=== PATIENT | female | born 1955 | race Caucasian/White ===

== ENCOUNTER 2023-02-22 16:53 | Emergency (ER) | payer MEDICARE, OTHER ==
[2023-02-22] MEDS ORDERED: ACETAMINOPHEN TAB 500 MG TAB PO STA (17:30)
[2023-02-22] MEDS ORDERED: FLUORESCEIN STRIPS 1 MG STRIP LEFT EYE ONE (17:30)
[2023-02-22] MEDS ORDERED: PROPARACAINE 0.5% OPHTH DROPS 15 ML BTL LEFT EYE STA (17:30)
--- NOTE | 2023-02-22 17:38 | ED ---
General Adult HPI - General Chief complaint: Fall Stated complaint: fall Time Seen by Provider: 02/22/23 17:11 Source: patient, RN notes reviewed Mode of arrival: ambulatory Limitations: no limitations - History of Present Illness Initial comments: 67-year-old female presents to the emergency department for evaluation of head injury from fall. She states that around 3:30 PM today she was walking a set of stairs in her garage when she tripped and fell. She hit her head on the garage door that was slightly ajar. She reports a scalp hematoma to her left-sided forehead above the eyebrow. She did not lose consciousness. She is not on any blood thinners. She denies any changes in her vision. She states that she has a lot of pressure to the front of her head where she was injured. She has been applying ice to this but has not taken any medication for pain control at this time. She denies any other injury. She is moving all extremities without limitations. - Related Data Allergies Allergy/AdvReac Type Severity Reaction Status Date / Time Latex, Natural Rubber Allergy Rash/Hives Verified 02/22/23 17:18 Review of Systems ROS Statement: Those systems with pertinent positive or pertinent negative responses have been documented in the HPI. ROS Other: All systems not noted in ROS Statement are negative. Past Medical History Past Medical History: Hypertension, Thyroid Disorder Additional Past Medical History / Comment(s): anxiety History of Any Multi-Drug Resistant Organisms: None Reported Past Psychological History: Anxiety Smoking Status: Never smoker Past Alcohol Use History: None Reported Past Drug Use History: None Reported General Exam Limitations: no limitations General appearance: alert, in no apparent distress Head exam: Present: other (Scalp hematoma above left eyebrow about 5 cm, ecchymosis to left upper eyelid ) Eye exam: Present: normal appearance, PERRL, EOMI. Absent: scleral icterus, conjunctival injection, periorbital swelling ENT exam: Present: normal exam, mucous membranes moist Neck exam: Present: normal inspection. Absent: tenderness, meningismus, lymphadenopathy Respiratory exam: Present: normal lung sounds bilaterally. Absent: respiratory distress, wheezes, rales, rhonchi, stridor Cardiovascular Exam: Present: regular rate, normal rhythm, normal heart sounds. Absent: systolic murmur, diastolic murmur, rubs, gallop, clicks GI/Abdominal exam: Present: soft, normal bowel sounds. Absent: distended, tenderness, guarding, rebound, rigid Extremities exam: Present: normal inspection, full ROM, normal capillary refill. Absent: tenderness, pedal edema, joint swelling, calf tenderness Back exam: Present: normal inspection Neurological exam: Present: alert, oriented X3, CN II-XII intact, normal gait. Absent: motor sensory deficit Psychiatric exam: Present: normal affect, normal mood Skin exam: Present: warm, dry, intact, other (ecchymosis to left upper eyelid, scalp hematoma above the left eyebrow). Absent: normal color Course Vital Signs 02/22/23 02/22/23 02/22/23 17:09 21:14 21:39 Temperature 98.0 F 97.8 F 97.6 F Pulse Rate 81 81 85 Respiratory 20 20 19 Rate Blood Pressure 145/78 134/83 135/81 O2 Sat by Pulse 97 99 96 Oximetry Medical Decision Making - Medical Decision Making Was pt. sent in by a medical professional or institution (, PA, AWS DEVELOPER, urgent care, hospital, or penitentiary...) When possible be specific @ -No Did you speak to anyone other than the patient for history (EMS, parent, family, police, friend...)? What history was obtained from this source @ -No Did you review nursing and triage notes (agree or disagree)? Why? @ -I reviewed and agree with nursing and triage notes Were old charts reviewed (outside hosp., previous admission, EMS record, old EKG, old radiological studies, urgent care reports/EKG's, penitentiary records)? Report findings @ -No old charts were reviewed Differential Diagnosis (chest pain, altered mental status, abdominal pain women, abdominal pain men, vaginal bleeding, weakness, fever, dyspnea, syncope, headache, dizziness, GI bleed, back pain, seizure, CVA, palpatations, mental health, musculoskeletal)? @ -Fall, head injury, scalp hematoma, intracranial hemorrhage, this list is not all-inclusive EKG interpreted by me (3pts min.). @ -none X-rays interpreted by me (1pt min.). @ -None done CT interpreted by me (1pt min.). @ -CT brain and C-spine shows no acute intracranial hemorrhage, no acute C- spine fracture, scalp hematoma and preseptal left orbit swelling CT facial bones shows no acute fracture U/S interpreted by me (1pt. min.). @ -None done What testing was considered but not performed or refused? (CT, X-rays, U/S, labs)? Why? @ -None What meds were considered but not given or refused? Why? @ -None Did you discuss the management of the patient with other professionals (professionals i.e. Dr., PA, AWS DEVELOPER, lab, RT, psych nurse, social contact worker, head inspector and center marker, teacher, disability insurance hearing officer, egg caser)? Give summary @ -No Was smoking cessation discussed for >3mins.? @ -No Was critical care preformed (if so, how long)? @ -No Were there social determinants of health that impacted care today? How? (Homelessness, low income, unemployed, alcoholism, drug addiction, transportation, low edu. Level, literacy, decrease access to med. care, longterm, rehab)? @ -No Was there de-escalation of care discussed even if they declined (Discuss DNR or withdrawal of care, Hospice)? DNR status @ -No What co-morbidities impacted this encounter? (DM, HTN, Smoking, COPD, CAD, Cancer, CVA, ARF, Chemo, Hep., AIDS, mental health diagnosis, sleep apnea, morbid obesity)? @ -None Was patient admitted / discharged? Hospital course, mention meds given and route, prescriptions, significant lab abnormalities, going to OR and other pertinent info. @ -Discharged. Patient presents to the emergency department for evaluation of head injury after fall. She did not lose consciousness. She is not on any blood thinners. She denies any vision changes. Visual acuity assessed along with likely to examination without any significant abnormality. No visible hyphema. No visible skin abrasion. Patient is neurologically intact. Moving all 70s without limitation, ambulating well. CT brain and C-spine obtained which shows no acute intracranial hemorrhage. Moderate-sized scalp hematoma over the left forehead with some extension to the eyelid and preseptal left orbit, globe intact, no evidence of calvarial fracture; CT cervical spine shows no evidence of acute cervical spine fracture or malalignment, patient has a history of cervical spine degeneration and is aware of this. She follows with a spine surgeon. Patient was advised on findings of testing and agreeable with discharge home. Discussed return precautions with patient. Patient is understanding and agreeable with plan. Patient stable at discharge. Case discussed with Dr. Guerrero Undiagnosed new problem with uncertain prognosis? @ -No Drug Therapy requiring intensive monitoring for toxicity (Heparin, Nitro, Insulin, Cardizem)? @ -No Were any procedures done? @ -No Diagnosis/symptom? @ -Fall, scalp hematoma Acute, or Chronic, or Acute on Chronic? @ -Acute Uncomplicated (without systemic symptoms) or Complicated (systemic symptoms)? @ -Uncomplicated Side effects of treatment? @ -No Exacerbation, Progression, or Severe Exacerbation? @ -No Poses a threat to life or bodily function? How? (Chest pain, [place], [place], pneumonia, PE, COPD, DKA, ARF, appy, cholecystitis, CVA, Diverticulitis, Homicidal, Suicidal, threat to staff... and all critical care pts) @ -No Disposition Clinical Impression: Fall, Scalp hematoma Disposition: HOME SELF-CARE Condition: Stable Instructions (If sedation given, give patient instructions): Fall Prevention (ED) Additional Instructions: Please follow up with your primary care provider. Return to the emergency department for new or worsening symptoms as we discussed. Is patient prescribed a controlled substance at d/c from ED?: No Referrals: Patricia Morales MD [Primary Care Provider] - 1-2 days
--- NOTE | 2023-02-22 19:31 | CT ---
EXAMINATION TYPE: CT brain cspine wo con CT DLP: 1264.4 mGycm, Automated exposure control for dose reduction was used. DATE OF EXAM: 02/22/2023 6:23 PM COMPARISON: None. CLINICAL INDICATION:Female, 67 years old with history of fall; Fall, Bruise above left eye. No LOC an d No Blood thinners. TECHNIQUE: Brain: Multiple axial CT images of the brain were obtained without IV contrast. Cspine: Axial CT images from the skull base to the inferior aspect of T2 we obtained without intraven ous contrast. Coronal and sagittal reformatted images were also reviewed. FINDINGS: Brain: Extra-axial spaces: No abnormal extra-axial fluid collections. Ventricular system: Appear mildly dilated in proportion to the degree of cerebral atrophy. Cerebral parenchyma: No increased attenuation to suggest acute intraparenchymal hemorrhage. The gra y-white matter interface appears maintained. Mild generalized brain atrophy. White matter unremarka ble by CT. Cerebellum: No acute abnormality. Mass effect: No evidence of mass effect or midline shift. Intracranial vasculature: Unremarkable Soft tissues: Moderate sized soft tissue hematoma over the left forehead supraorbital region, with so me extension into the eyelid and preseptal region. Visualized orbits: There is no evidence of retrobulbar hematoma or gas. Globes appear to be intact. Calvarium/osseous structures: No evidence of calvarial fracture. Small calcification noted in the lef t posterior parasagittal region scalp over the parietal lobe. Paranasal sinuses and mastoid air cells: Clear MRI is more sensitive for detecting acute processes such as infarct, and may be considered if clinica lly warranted. Cervical spine: Exam is limited by patient motion. Fracture: None seen. Osseous structures, spinal canal/neural foramina: Osseous mineralization appears mildly reduced. Cran iocervical junction is intact. Moderate degenerative change of the anterior C1-C2 articulation. Moder ate multilevel degenerative disc disease with disc marginal osteophytes at multiple levels. Mild face t arthrosis throughout. At C2-C3, minimal canal and neural foraminal narrowing. At C3-C4, mild to mod erate narrowing of the spinal canal and neural foramina. At C3-C4, moderate right and mild left neura l foraminal stenosis. Mild to moderate canal stenosis. At C4-5, there is moderate bilateral neural fo raminal stenosis and canal stenosis. At C5-6, mild to moderate bilateral neural foraminal stenosis an d canal stenosis. C6-7, there is mild canal and right neural foraminal stenosis, moderate left neural foraminal stenosi s. At C7-T1, no significant canal or neural foraminal stenosis. Vertebral alignment: No traumatic mal alignment. Straightening mild reversal of the normal cervical lordosis, can be seen with degenerative changes, pain, positioning, muscular spasm. Neck soft tissues: No acute finding.. Calcifications noted involving the cervical carotid arteries mo stly bifurcation regions, especially the right, and along aortic arch. Other: Lung apices show no acute infiltrate or pneumothorax. Mild scarring/senescent changes. IMPRESSION: CT head: 1. Moderate size scalp hematoma over the left forehead, with some extension to the eyelid and presep deny left orbit. 2. Globe appears intact. No retrobulbar hematoma. 3. No evidence of calvarial fracture. 4. No acute intracranial abnormality. 5. Mild generalized brain atrophy. CT cervical spine: 1. No evidence of acute cervical spine fracture or traumatic malalignment. 2. Multilevel degenerative changes, with various degrees of canal and foraminal stenosis described ab ove. 3. Straightening and mild reversal of the normal cervical lordosis, can be seen with degenerative bettina nges, pain, positioning, and/or muscular spasm.
--- NOTE | 2023-02-22 20:46 | CT ---
EXAMINATION TYPE: CT facial bones wo con CT DLP: 1264.4 mGycm, Automated exposure control for dose reduction was used. DATE OF EXAM: 02/22/2023 6:23 PM COMPARISON: . CLINICAL INDICATION:Female, 67 years old with history of fall; PHH, Fall, Bruise above left eye. No L OC and No Blood thinners. TECHNIQUE: Multiple unenhanced axial CT images were obtained of the facial bones soft tissue and bone windows. Coronal, axial and sagittal reformatted images were also provided in soft tissue and bone windows and submitted for interpretation. Additional 3-D reformatted images were obtained on a [employer] workstation. FINDINGS: Moderate sized soft tissue hematoma over the left forehead supraorbital region, with extension into t he eyelid and preseptal region on the left. There is no evidence of post septal involvement, retrobul bar hematoma, or intraorbital gas. Globes appear to be intact. No opaque foreign body. Soft tissue hematoma overlies the left frontal bone and frontal sinuses, there is no evidence of frac ture involving the visualized calvarium or sinus delgado. Paranasal sinuses and mastoid air cells are o therwise clear. There is no evidence of acute fracture or malalignment involving the facial bones. No orbital fractur e is seen. Anterior nasal spine is intact. Mild degenerative changes of the temporomandibular joints with preserved alignment. Partially seen degenerative changes of the cervical spine, please refer to separate CT head/cervical spine report for further details. IMPRESSION: 1. Moderate size scalp hematoma over the left forehead with extension to the preseptal left orbital soft tissues. 2. No evidence of post septal involvement, no retrobulbar hematoma. Globe appears intact. 3. No evidence of orbital/facial bone fracture.
[2023-02-22 21:45] VITALS: BP 135/81; PULSE 85; RESP 19; TEMP 97.6
== END 2023-02-22 21:43 | disposition home or self-care (01) ==
LOC: EC 16:53
DX: S00.03XA Contusion of scalp, initial encounter (principal); I10 Essential (primary) hypertension; Z86.59 Personal history of other mental and behavioral disorders; Z91.040 Latex allergy status; W01.0XXA Fall on same level from slipping, tripping and stumbling without subsequent striking against object, initial encounter
CPT/HCPCS: 70450; 70486; 72125; 99284